=== PATIENT | female | born 1950 | race Caucasian/White ===

== ENCOUNTER → 2023-05-10 18:07 | Outpatient (REF) | payer BC, SELFPAY | LOC: PAVMRI 18:07 | PROVIDERS: ATTENDING PHYSICIAN Anesthesiology; FAMILY PHYSICIAN Student in an Organized Health Care Education/Training Program | DX: M54.12 Radiculopathy, cervical region (principal); M54.2 Cervicalgia | CPT/HCPCS: 72141 ==

== ENCOUNTER → 2023-12-03 16:34 | Outpatient (REF) | payer BC, SELFPAY | LOC: RAD 16:34 | PROVIDERS: ATTENDING PHYSICIAN Neurological Surgery; FAMILY PHYSICIAN Student in an Organized Health Care Education/Training Program; REFERRING PHYSICIAN Anesthesiology | DX: M54.2 Cervicalgia (principal); M50.30 Other cervical disc degeneration, unspecified cervical region | CPT/HCPCS: 72125 ==

== ENCOUNTER → 2024-06-05 10:46 | Outpatient (REF) | payer OTHER, SELFPAY ==
[2024-06-05 12:35] LABS: % Basophils 0.8 % (0-2); % Immature Granulocytes 0.8 % (0-0.5); % Lymphocytes 30.3 % (20.5-51.1); % Monocytes 11.2 % (1.7-9.3); % Neutrophils 53.9 % (42.2-75.2); Absolute Basophils 0.1 10^3/uL (0-0.2); Absolute Eosinophils 0.3 10^3/uL (0-0.7); Absolute Immature Granulocytes 0.1 10^3/uL (0-0.05); Absolute Lymphocytes 2.8 10^3/uL (1.2-3.4); Hematocrit 33.5 % (37.0-47.0); Mean Corp Hgb Conc. 32.8 g/dL (33.0-37.0); Mean Corpuscular Hgb 27.6 pg (27.0-31.0); Mean Platelet Volume 10.8 fL (7.4-10.4); Nucleated Red Blood Cells % 0 %; Platelet Count 349 10^3/uL (130-400); Red Blood Cell Count 3.99 10^6/uL (4.20-5.40); Red Cell Dist. Width 14.3 % (11.5-14.5); White Blood Cell Count 9.3 10^3/uL (4.8-10.8)
[2024-06-05 13:04] LABS: Microalbumin, Random Urine 1.3 mg/dl (0.6-1.7); Microalbumin/creatinine Ratio 28.8 mg/g
[2024-06-05 13:13] LABS: Erythrocyte Sed Rate 32 mm/hour (0-20)
[2024-06-05 13:27] LABS: ALT (SGPT) 23 U/L (0-35); AST (SGOT) 21 U/L (14-36); Albumin 4.6 g/dl (3.5-5.0); Alkaline Phosphatase 146 U/L (38-126); Blood Urea Nitrogen 17 mg/dl (7-17); Calcium 9.5 mg/dl (8.4-10.2); Carbon Dioxide 25 mmol/L (22-30); Chloride 105 mmol/L (98-107); Glucose 122 mg/dl (70-99); HDL Cholesterol 54 mg/dl; LDL Cholesterol, Calculated 79 mg/dl; Potassium 4.7 mmol/L (3.5-5.1); Sodium 141 mmol/L (135-145); Total Bilirubin 0.5 mg/dl (0.2-1.3); Total Cholesterol 166 mg/dl (50-199); Total Protein 7.2 g/dl (6.3-8.2); Triglyceride 168 mg/dl (10-149); Very Low Density Lipoprotein 33 mg/dl (0-30); eGFR > 60.00
[2024-06-05 13:42] LABS: Free T4 0.86 ng/dl (0.78-2.19)
[2024-06-05 13:56] LABS: TSH 1.26 uIU/ml (0.47-4.68)
[2024-06-05 14:15] LABS: Vitamin B12 603 pg/ml (239-931)
[2024-06-06 09:00] LABS: Glycohemoglobin (HgbA1c) 7.2 % (4.0-5.6)
[2024-06-08 01:32] LABS: ANA, IgG Reflex to HEp-2 None Detected (None Detected)
== END ==
LOC: MRI 3T 10:46
PROVIDERS: ATTENDING PHYSICIAN Anesthesiology; FAMILY PHYSICIAN Student in an Organized Health Care Education/Training Program
DX: M54.16 Radiculopathy, lumbar region (principal); E11.9 Type 2 diabetes mellitus without complications; Z00.00 Encounter for general adult medical examination without abnormal findings; I10 Essential (primary) hypertension; M25.50 Pain in unspecified joint; G62.9 Polyneuropathy, unspecified
CPT/HCPCS: 36415; 71046; 72148; 80053; 80061; 82043; 82570; 82607; 83036; 84439; 84443; 85025; 85652; 86038; 86140; 86430; 86618; 86780

== ENCOUNTER → 2024-09-17 12:11 | Outpatient (REF) | payer OTHER, SELFPAY | LOC: DHSLP 12:11 | PROVIDERS: ATTENDING PHYSICIAN Internal Medicine Critical Care Medicine; FAMILY PHYSICIAN Student in an Organized Health Care Education/Training Program | DX: G47.33 Obstructive sleep apnea (adult) (pediatric) (principal) | CPT/HCPCS: 95800 ==

== ENCOUNTER → 2024-10-02 16:23 | Outpatient (REF) | payer OTHER, SELFPAY | LOC: RAD 16:23 | PROVIDERS: ATTENDING PHYSICIAN Internal Medicine; FAMILY PHYSICIAN Student in an Organized Health Care Education/Training Program; OTHER PHYSICIAN Physician Assistant | DX: M79.606 Pain in leg, unspecified (principal); M79.605 Pain in left leg | CPT/HCPCS: 93971 ==

== ENCOUNTER → 2024-12-04 17:19 | Outpatient (REF) | payer OTHER, SELFPAY ==
[2024-12-04 17:58] LABS: Hematocrit 32.5 % (37.0-47.0); Hemoglobin 10.8 g/dL (12.0-16.0); Mean Corp Hgb Conc. 33.2 g/dL (33.0-37.0); Mean Corpuscular Volume 85.5 fL (81.0-99.0); Nucleated Red Blood Cells % 0 %; Platelet Count 314 10^3/uL (130-400); Red Cell Dist. Width 14.2 % (11.5-14.5)
[2024-12-04 18:09] LABS: LDH 179 U/L (120-246)
[2024-12-04 18:15] LABS: C-Reactive Protein 11.60 mg/L (0.0-10.00)
[2024-12-04 18:47] LABS: Hepatitis B Surface Antigen Negative (Negative)
[2024-12-04 19:06] LABS: Hepatitis C Antibody Negative (Negative)
== END ==
LOC: REG 17:19
PROVIDERS: ATTENDING PHYSICIAN Internal Medicine Hematology & Oncology; FAMILY PHYSICIAN Student in an Organized Health Care Education/Training Program
DX: C90.00 Multiple myeloma not having achieved remission (principal); D47.2 Monoclonal gammopathy
CPT/HCPCS: 36415; 82232; 82595; 83615; 85025; 85652; 85810; 86140; 86157; 86704; 86706; 86803; 87340; 87522

== ENCOUNTER → 2024-12-07 11:17 | Outpatient (REF) | payer OTHER, SELFPAY ==
[2024-12-09 14:49] LABS: 24 Hour Urine Total Volume 2700 mL; Ur Free Lambda Excretion/day 6.24 mg/d; Urine Collection Length 24 hr
== END ==
LOC: REG 11:17
PROVIDERS: ATTENDING PHYSICIAN Internal Medicine Hematology & Oncology; FAMILY PHYSICIAN Student in an Organized Health Care Education/Training Program
DX: C90.00 Multiple myeloma not having achieved remission (principal)
CPT/HCPCS: 36415; 83520; 84156; 86335

== ENCOUNTER → 2024-12-08 17:28 | Outpatient (REF) | payer OTHER, SELFPAY | LOC: RAD 17:28 | PROVIDERS: ATTENDING PHYSICIAN Internal Medicine Rheumatology; FAMILY PHYSICIAN Family Medicine | DX: R79.82 Elevated C-reactive protein (CRP) (principal); M25.50 Pain in unspecified joint; M25.519 Pain in unspecified shoulder; M79.643 Pain in unspecified hand | CPT/HCPCS: 73030; 73130 ==

== ENCOUNTER → 2024-12-18 13:58 | Outpatient (REF) | payer OTHER, SELFPAY | LOC: HWWDC 13:58 | PROVIDERS: ATTENDING PHYSICIAN Student in an Organized Health Care Education/Training Program | DX: M81.0 Age-related osteoporosis without current pathological fracture (principal); Z12.31 Encounter for screening mammogram for malignant neoplasm of breast | CPT/HCPCS: 77063; 77067; 77080 ==